=== PATIENT | male | born 1990 | race Caucasian/White ===

== ENCOUNTER 2021-07-23 15:38 | Emergency (ER) | payer OTHER, SELFPAY ==
[2021-07-23 15:56] VITALS: BP 137/83; PULSE 74; RESP 18; TEMP 37.5; O2SAT 99
--- NOTE | 2021-07-23 17:02 | ED.URI ---
HPI - URI/Sore Throat General Chief Complaint: Upper Respiratory Infection Stated Complaint: cold symptoms Source: patient and RN notes reviewed Limitations: no limitations History of Present Illness HPI Narrative: The unvaccinated patient, a non-smoker/nondrinker municipal employee, presents with 7 days of nasal congestion and associated ear fullness. There is also mild cough; no fever, sore throat, wheezing/sneezing, sputum changes; no loss of taste/smell, CP, vomiting/diarrhea, S OB. Symptoms are mild unrelieved with OTC preparations like NyQuil Related Data Allergies Allergy/AdvReac Type Severity Reaction Status Date / Time No Known Allergies Allergy Verified 07/23/21 15:59 Review of Systems Review of Systems: General/Constitutional: No weight loss,fever Eyes: N0: Redness,discharge Ears/Nose/Throat: No: Epistaxis,ear discharge Respiratory: Denies: Hemoptysis Gastrointestinal: No Vomiting, Bleeding-rectal Skin: No Lumps, eruption Neurologic: No Focal Weakness,Sz Hematologic: Denies: Petechiae/Purpura Psychiatric: No: Suicida ideationl All Other Systems: Reviewed and Negative PMFSH Comments At time of signature, agree with nursing past medical, surgical, social and family history. There is no relevant family history pertinent to the presenting complaint Exam Narrative: General Appearance: Well appearing, Well nourished EYE: PERRLA, Conjunctiva clear Ears: Auditory canal normal, TM normal Nose: Rhinorrhea, Mucousal erythema Mouth/Throat: MM moist, Uvula midline, Pharyngeal erythema Neck: Supple, No adenopathy Respiratory: No respiratory distress, Breath sounds equal, Clear to auscultation Cardiovascular: RRR, No JVD Musculoskeletal: Non tender, Normal strength Skin: Warm, Dry Neurological: A&O x3, CN II-XII intact Psychiatric: Normal mood, Normal affect Course Vital Signs Vital signs: Vital Signs Temperature 99.5 F 07/23/21 15:56 Pulse Rate 74 07/23/21 15:56 Respiratory Rate 18 07/23/21 15:56 Blood Pressure 137/83 07/23/21 15:56 Pulse Oximetry 99 07/23/21 15:56 Temperature 99.5 F 07/23/21 15:56 Pulse Rate 74 07/23/21 15:56 Respiratory Rate 18 07/23/21 15:56 Blood Pressure 137/83 07/23/21 15:56 Pulse Oximetry 99 07/23/21 15:56 MDM - URI/Sore Throat Lab Data Labs: Influenza A Screen Negative Reference Range: Negative Influenza B Screen Negative Reference Range: Negative RSV Negative (Reference Range: Negative) Discharge Plan Discharge Clinical Impression: Sinus headache Patient Disposition: Home, Self-Care Condition: Stable Instructions: Antibiotic Form, Rhinosinusitis (ED) Additional Instructions: You may use OTC preparations like Flonase, cough syrups, antihistamines [Claritin, Zyrtec] etc also, Prescriptions: New azithromycin 250 mg tablet See Rx Instructions .ROUTE .COMPLEX Qty: 6 RF: 0 benzonatate 100 mg capsule 100 mg PO TID PRN (Reason: cough) Qty: 20 RF: 2 azelastine 137 mcg (0.1 %) aerosol,spray 137 mcg NASAL Q12H Qty: 30 RF: 0 fluticasone propionate [Allergy Relief (fluticasone)] 50 mcg/actuation spray,suspension 1 spray intranasal DAILY Qty: 16 RF: 2 Follow-up/Referrals: UNKNOWN,DOCTOR [Primary Care Provider] -
[2021-07-24 20:27] LABS: SARS-CoV-2 RNA PCR Negative
== END 2021-07-23 17:10 | disposition home or self-care (01) ==
PROVIDERS: Emergency Provider Emergency Medicine
DX: R51.9 Headache, unspecified (principal); Z20.822 Contact with and (suspected) exposure to COVID-19
CPT/HCPCS: 87420; 87804; 99213; C9803; G0463; U0003; U0005